=== PATIENT | male | born 1950 | race Caucasian/White ===

== ENCOUNTER → 2022-10-22 11:24 | Outpatient (BNVA) | payer MEDICARE, OTHER, SELFPAY | PROVIDERS: Family Provider Nurse Practitioner Family; Referring Provider Registered Nurse; Visit Provider Physician Assistant | DX: S63.259A Unspecified dislocation of unspecified finger, initial encounter (principal); W23.0XXA Caught, crushed, jammed, or pinched between moving objects, initial encounter | CPT/HCPCS: 73130; 99203 ==